=== PATIENT | male | born 1965 | race Caucasian/White ===

== ENCOUNTER 2017-08-19 07:18 | Day surgery (SDC) | payer OTHER | END 2017-08-19 11:20 | disposition home or self-care (01) | LOC: AMB-ENDOS 07:18 | DX: K64.8 Other hemorrhoids (principal); K64.5 Perianal venous thrombosis; Z12.12 Encounter for screening for malignant neoplasm of rectum ==

== ENCOUNTER 2021-05-30 09:35 | Outpatient (CLI) | payer OTHER | END 2021-05-30 09:47 | disposition home or self-care (01) | LOC: MRI 09:35 | DX: M25.561 Pain in right knee (principal) | CPT/HCPCS: 73721 ==

== ENCOUNTER → 2021-06-05 10:08 | Outpatient (CLI) | payer OTHER | END | disposition home or self-care (01) | LOC: LAB 10:08 | PROVIDERS: ATTEND Orthopaedic Surgery | DX: I10 Essential (primary) hypertension (principal); D64.89 Other specified anemias; E88.89 Other specified metabolic disorders; D68.8 Other specified coagulation defects; N39.0 Urinary tract infection, site not specified; Z22.322 Carrier or suspected carrier of Methicillin resistant Staphylococcus aureus; Z76.89 Persons encountering health services in other specified circumstances; I49.8 Other specified cardiac arrhythmias ==

== ENCOUNTER 2021-06-16 07:00 | Day surgery (SDC) | payer OTHER ==
[~2021-06-16 07:00] MED LIST: DAFLONEX-XL 11300 MG PO
== END 2021-06-16 16:50 | disposition home or self-care (01) ==
LOC: CIR.AMB 07:00
PROVIDERS: ATTEND Orthopaedic Surgery
DX: M23.321 Other meniscus derangements, posterior horn of medial meniscus, right knee (principal); M65.861 Other synovitis and tenosynovitis, right lower leg; M94.261 Chondromalacia, right knee

== ENCOUNTER 2021-12-21 22:41 | Emergency (ER) | payer OTHER ==
[~2021-12-21] VITALS: Ht 177.8 cm; Wt 84.8 kg
[2021-12-21] MEDS ORDERED: ALTACE1.25 MG PO (23:01)
[2021-12-22] MEDS ORDERED: ANTIFUNGAL113 GM TOP (01:27)
== END 2021-12-22 01:35 | disposition home or self-care (01) ==
LOC: ER 22:41
DX: B35.6 Tinea cruris (principal); I10 Essential (primary) hypertension

== ENCOUNTER 2025-01-16 12:50 | Inpatient (IN) | payer OTHER ==
[~2025-01-16] VITALS: Ht 177.8 cm; Wt 68.0 kg
[~2025-01-16 12:50] MED LIST changes: +ALTACE1.25 MG PO; +ANTIFUNGAL113 GM TOP
[2025-01-16] MEDS ORDERED: KETOROLAC TROMETHAMINE 15 MG VIAL IM STA (14:26)
[2025-01-16] MEDS ORDERED: KETOROLAC TROMETHAMINE 30 MG VIAL ONE (15:01)
[2025-01-16 15:45] LABS: BASO % 0.3 % (0.1-1.2); EOS # 0.01 (0.04-0.54); EOS % 0.1 % (0.7-7.0); HEMATOCRIT 41.8 % (40.1-51.0); HEMOGLOBIN 14.9 g/dL (13.7-17.5); LYMPH # 1.07 (1.18-3.74); LYMPH % 11.2 % (19.3-53.1); MONO % 6.3 % (4.7-12.5); NEUT # 7.82 (1.56-6.13); PLATELET COUNT 171 K/uL (163-369); RED BLOOD COUNT 4.97 M/uL (4.63-6.08)
[2025-01-16 16:11] LABS: ALBUMIN 4.1 gm/dL (3.4-5.0); BILIRUBIN TOTAL 0.94 mg/dL (0.3-1.2); CALCIUM 9.4 mg/dL (8.5-10.1); CREATININE SERUM 0.72 mg/dL (0.70-1.30); GFR 111.35; GLOBULINA 3.3 G/DL (2.4-3.5); POTASSIUM 3.55 mEq/L (3.5-5.1); TOTAL PROTEIN 7.4 gm/dL (6.4-8.2)
[2025-01-16] MEDS ORDERED: 0.9 % SODIUM CHLORIDE 1,000 ML IV SCH (22:15)
[2025-01-16] MEDS ORDERED: ENALAPRILAT DIHYDRATE 1.25 MG/ML VIAL IV PRN (22:15)
[2025-01-16] MEDS ORDERED: MORPHINE SULFATE 2 MG/ML CARTRIDGE IV PRN (22:15)
[2025-01-16] MEDS ORDERED: CEFAZOLIN SODIUM 2,000 MG in 0.9 % SODIUM CHLORIDE 100 ML IV SCH (22:15)
[2025-01-16] MEDS ORDERED: MORPHINE SULFATE 4 MG/ML VIAL IV ONE (23:45)
[2025-01-17 00:32] VITALS: BP 166/81
[2025-01-17 00:37] LABS: INR 1.08; PARTIAL THROMBOPLASTIN TIME 24.1 SECONDS (22.0-34.0); PROTHROMBIN TIME 11.7 SECONDS (9.0-11.5)
[2025-01-17 01:03] LABS: PH,URINE 5.5 (5.0-8.0); URINE APPEARANCE Clear; URINE BILIRRUBIN Negative (NEGATIVE); URINE BLOOD Negative; URINE COLOR Yellow; URINE GLUCOSE Negative (NEGATIVE); URINE KETONE 15 (NEGATIVE); URINE LEUKOCYTE Negative; URINE NITRATE Negative; URINE PROTEIN Trace (NEGATIVE)
[2025-01-17 01:06] LABS: URINE BACTERIA 100.3 uL (0.0-1933); URINE EPITHELIAL CELLS 1.8 uL (0.0-38.8); URINE WBC 2.8 uL (0.0-23.2)
[2025-01-17 01:09] LABS: TYPE CELLS SQUAMOUS; URINE CAST 0.29 uL (0.0-1.40)
[2025-01-17 08:49] VITALS: BP 158/78; O2SAT 95
[2025-01-17 16:00] VITALS: BP 167/83; O2SAT 97
[2025-01-18 08:31] VITALS: BP 164/78; O2SAT 96
[2025-01-18 12:20] LABS: ALBUMIN 3.6 gm/dL (3.4-5.0); BILIRUBIN TOTAL 1.13 mg/dL (0.3-1.2); CALCIUM 9.1 mg/dL (8.5-10.1); CREATININE SERUM 0.72 mg/dL (0.70-1.30); GFR 111.35; GLOBULINA 3.2 G/DL (2.4-3.5); POTASSIUM 3.63 mEq/L (3.5-5.1); TOTAL PROTEIN 6.8 gm/dL (6.4-8.2)
[2025-01-18] MEDS ORDERED: VANCOMYCIN HCL 1,000 MG VIAL ONE (12:22)
[2025-01-18] MEDS ORDERED: VANCOMYCIN HCL 1,000 MG VIAL IR ONE (13:15)
[2025-01-18] MEDS ORDERED: TRANEXAMIC ACID 100MG/1ML (1000MG) AMPUL IV ONE (13:16)
[2025-01-18] MEDS ORDERED: SODIUM CHLORIDE 0.45 % 1,000 ML IV SCH (15:00)
[2025-01-18] MEDS ORDERED: ONDANSETRON 4 MG TAB.RAPDIS PO PRN (15:00)
[2025-01-18] MEDS ORDERED: ONDANSETRON HCL 2 MG/ML VIAL IV PRN (15:00)
[2025-01-18] MEDS ORDERED: PROMETHAZINE HCL 50 MG/ML AMPUL IM PRN (15:00)
[2025-01-18] MEDS ORDERED: MEPERIDINE HCL/PF 50 MG/ML VIAL IM PRN (15:00)
[2025-01-18] MEDS ORDERED: TRAMADOL HCL 50 MG TABLET PO PRN (15:00)
[2025-01-18 15:25] LABS: BASO % 0.3 % (0.1-1.2); EOS # 0.15 (0.04-0.54); HEMATOCRIT 41.7 % (40.1-51.0); HEMOGLOBIN 14.5 g/dL (13.7-17.5); LYMPH # 1.06 (1.18-3.74); LYMPH % 13.9 % (19.3-53.1); MEAN CORPUSCULAR HEMOGLOBIN 29.8 pg (25.6-32.2); MONO # 0.62 (0.24-0.82); MONO % 8.2 % (4.7-12.5); NEUT # 5.73 (1.56-6.13); NEUT % 75.3 % (34.0-71.1); PLATELET COUNT 178 K/uL (163-369); RED BLOOD COUNT 4.86 M/uL (4.63-6.08); RED CELL DISTRIBUTION WIDTH 12.3 % (11.6-14.4)
[2025-01-18] MEDS ORDERED: MORPHINE SULFATE 4 MG/ML VIAL IV ONE (16:25)
[2025-01-18] MEDS ORDERED: CEFAZOLIN SODIUM 1,000 MG VIAL IV SCH (17:00)
[2025-01-18] MEDS ORDERED: ACETAMINOPHEN 325 MG TABLET PO SCH (17:00)
[2025-01-18] MEDS ORDERED: CELECOXIB 200 MG CAPSULE PO SCH (17:00)
[2025-01-18] MEDS ORDERED: CEFAZOLIN SODIUM 1,000 MG VIAL ONE (18:14)
[2025-01-18 18:44] VITALS: BP 173/89; O2SAT 95
[2025-01-18] MEDS ORDERED: KETOROLAC TROMETHAMINE 10 MG TABLET PO SCH (21:00)
[2025-01-19] VITALS: BP 126/72; O2SAT 95
[2025-01-19 06:47] LABS: BASO % 0.4 % (0.1-1.2); EOS # 0.19 (0.04-0.54); HEMATOCRIT 37.1 % (40.1-51.0); LYMPH # 1.32 (1.18-3.74); LYMPH % 13.7 % (19.3-53.1); MEAN CORPUSCULAR HEMOGLOBIN 29.9 pg (25.6-32.2); MONO # 1.06 (0.24-0.82); NEUT # 6.98 (1.56-6.13); NEUT % 72.7 % (34.0-71.1); PLATELET COUNT 175 K/uL (163-369); RED BLOOD COUNT 4.35 M/uL (4.63-6.08); RED CELL DISTRIBUTION WIDTH 12.1 % (11.6-14.4)
[2025-01-19 08:00] VITALS: BP 146/79; O2SAT 95
[2025-01-19] MEDS ORDERED: RIVAROXABAN 10 MG TAB PO SCH (09:00)
[2025-01-19] MEDS ORDERED: PANTOPRAZOLE SODIUM 40 MG TABLET.DR PO SCH (09:00)
[2025-01-20] MEDS ORDERED: SENNA/DOCUSATE SODIUM 1 TAB TABLET PO SCH (09:00)
== END 2025-01-19 21:56 | disposition home or self-care (01) | DRG 494 ==
LOC: ER 13:34 → SURG 22:57
PROVIDERS: General Practice; Orthopaedic Surgery; Preventive Medicine Public Health & General Preventive Medicine; ADMIT Internal Medicine; ATTEND Internal Medicine
PROC: BW28ZZZ Computerized Tomography (CT Scan) of Head (ICD-10-PCS; 2025-01-16)
PROC: 0QSH04Z Reposition Left Tibia with Internal Fixation Device, Open Approach (ICD-10-PCS; principal; 2025-01-18 20:15)
DX: S82.242A Displaced spiral fracture of shaft of left tibia, initial encounter for closed fracture (principal); W13.3XXA Fall through floor, initial encounter; Y93.9 Activity, unspecified; Y92.9 Unspecified place or not applicable; S99.912A Unspecified injury of left ankle, initial encounter; J45.909 Unspecified asthma, uncomplicated

== ENCOUNTER 2025-02-18 12:57 | Outpatient (CLI) | payer OTHER | END 2025-02-18 13:06 | disposition home or self-care (01) | LOC: RAD 12:57 | PROVIDERS: ATTEND Orthopaedic Surgery | DX: S82.232D Displaced oblique fracture of shaft of left tibia, subsequent encounter for closed fracture with routine healing (principal) ==

== ENCOUNTER 2025-04-29 11:01 | Outpatient (CLI) | payer OTHER | END 2025-04-29 11:06 | disposition home or self-care (01) | LOC: RAD 11:01 | PROVIDERS: ATTEND Orthopaedic Surgery | DX: S82.232D Displaced oblique fracture of shaft of left tibia, subsequent encounter for closed fracture with routine healing (principal) ==

== ENCOUNTER 2025-06-29 09:08 | Outpatient (CLI) | payer OTHER | END 2025-06-29 09:09 | disposition home or self-care (01) | LOC: NUCLEAR 09:08 | PROVIDERS: ATTEND Orthopaedic Surgery | DX: M81.0 Age-related osteoporosis without current pathological fracture (principal) ==

== ENCOUNTER 2025-06-29 10:25 | Outpatient (CLI) | payer OTHER | END 2025-06-29 10:36 | disposition home or self-care (01) | LOC: LAB 10:25 | PROVIDERS: ATTEND Orthopaedic Surgery | DX: E55.9 Vitamin D deficiency, unspecified (principal); M85.9 Disorder of bone density and structure, unspecified; E56.1 Deficiency of vitamin K ==